=== PATIENT | female | born 1975 | race Hispanic/Latino ===

== ENCOUNTER 2019-06-19 23:31 | Emergency (ER) | payer SELFPAY ==
[2019-06-20 00:17] VITALS: BP 125/68
--- NOTE | 2019-06-20 00:46 | XRay Report ---
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 There is abnormal lucency iden tified involving the cuboid that may represent fracture. No fracture of the medial or lateral malleol us identified. Signer Name: Lorenzo Amaya MD Signed: 06/20/2019 12:41 AM Workstation Name: [id number]
[2019-06-20 01:35] LABS: Basophils % (Auto) 0.1 % (0.0-1.8); Eosinophils % (Auto) 0.2 % (0.0-4.3); Hematocrit 33.6 % (30.3-42.9); Hemoglobin 11.3 gm/dl (10.1-14.3); Lymphocytes % (Auto) 11.3 % (13.4-35.0); Mean Corpuscular HGB Conc 34 % (30-34); Mean Corpuscular Volume 89 fl (79-97); Monocytes # (Auto) 0.3 K/mm3 (0.0-0.8); Monocytes % (Auto) 3.6 % (0.0-7.3); Platelet Count 254 K/mm3 (140-440); Red Cell Distribution Width 14.3 % (13.2-15.2)
[2019-06-20 01:54] LABS: Alanine Aminotransferase 17 units/L (7-56); Albumin 4.5 g/dL (3.9-5); BUN/Creatinine Ratio 18; Blood Urea Nitrogen 20 mg/dL (7-17); Calcium 9.2 mg/dL (8.4-10.2); Hemolysis Index 2
--- NOTE | 2019-06-20 02:38 | Cat Scan Report ---
CT head without contrast INDICATION : Headache following injury TECHNIQUE: Axial imaging performed from the skull apex through the skull base without the use of con trast. All CT examinations performed at this facility utilize dose modulation, iterative reconstruct ion or weight-based dosing, when appropriate, to reduce radiation dose to as low as reasonably achiev able. COMPARISON: None FINDINGS: No acute intracranial hemorrhage or parenchymal abnormality. 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 Ventricles are normal in size and appear symm etric. Soft tissues including the orbits appear normal. No acute osseous abnormality. Sinuses a nd mastoid air cells are clear. IMPRESSION: No acute abnormality. Signer Name: Lorenzo Amaya MD Signed: 06/20/2019 2:33 AM Workstation Name: [id number]
--- NOTE | 2019-06-20 02:38 | Cat Scan Report ---
CT cervical spine spine without contrast INDICATION: fall. Neck pain following fall TECHNIQUE: Axial imaging performed through the cervical spine without the use of contrast. Sagittal and coronal reconstructed images were also reviewed. All CT scans at this location are performed us ing CT dose reduction for ALARA by means of automated exposure control. COMPARISON: None FINDINGS: Alignment: Spinal alignment is normal. Bones: There is no acute osseous abnormality. Mild multilevel discogenic DJD is present. Soft tissues: No acute or significant incidental soft tissue abnormality. IMPRESSION: No acute abnormality. Signer Name: Lorenzo Amaya MD Signed: 06/20/2019 2:34 AM Workstation Name: [id number]
--- NOTE | 2019-06-20 02:41 | Cat Scan Report ---
CT lower extremity LT wo con INDICATION / CLINICAL INFORMATION: abnormal foot x-ray, fall, foot pain. Left foot pain following injury TECHNIQUE: CT of the left foot without contrast All CT scans at this location are performed using CT dose reduct ion for ALARA by means of automated exposure control. COMPARISON: None available. FINDINGS: There is severe healed posttraumatic deformity involving the calcaneus with advanced associated subta lar degenerative changes, posttraumatic in type. The lucency identified within the navicular bone rep resents artifact and there is no discrete fracture identified. No acute dislocation. No intrinsic fra cture of the visualized ankle identified. IMPRESSION: No acute fracture or subluxation appreciated. Severe posttraumatic deformity of the calcaneus with ad vanced posttraumatic changes of the subtalar joint, as above. Signer Name: Lorenzo Amaya MD Signed: 06/20/2019 2:36 AM Workstation Name: [id number]
--- NOTE | 2019-06-20 02:48 | Emergency Department Report ---
HPI - General Chief Complaint: Fall Time Seen by Provider: 06/20/19 00:49 - HPI HPI: 43-year-old female presents to the emergency department via EMS after she tripped and fell on the street. She says that she hit her head and may have injured her left ankle and foot. She denies any loss of consciousness. She did not take anything and was not given anything for her symptoms prior to arrival. She has a past medical history of high cholesterol. Patient says that she lives in [facility] but was visiting a friend in this area. After she finished her visit she decided to walk to the store. She is unsure what she tripped over but says that she tripped over something to cause her fall. Patient denies any alcohol or illicit drug use. ED Past Medical Hx - Past Medical History Previous Medical History?: Yes Additional medical history: High Cholesterol - Surgical History Past Surgical History?: No - Social History Smoking Status: Current Every Day Smoker Substance Use Type: None ED Review of Systems ROS: Stated complaint: LT ANKLE PAIN Other details as noted in HPI Comment: All other systems reviewed and negative Constitutional: denies: chills, fever Respiratory: denies: shortness of breath Cardiovascular: denies: chest pain, syncope Gastrointestinal: denies: abdominal pain Musculoskeletal: arthralgia, myalgia. denies: back pain Skin: denies: rash, lesions Neurological: headache. denies: weakness, numbness Physical Exam - Physical Exam Vital Signs: Vital Signs 06/20/19 00:04 Temperature 98 F Pulse Rate 101 H Respiratory 16 Rate Blood Pressure 125/68 O2 Sat by Pulse 98 Oximetry Physical Exam: GENERAL: The patient is well-developed well-nourished. HENT: Normocephalic. Atraumatic. Patient has moist mucous membranes. EYES: Extraocular motions are intact. Pupils equal reactive to light bilaterally. NECK: Supple. Trachea is midline. CHEST/LUNGS: Clear to auscultation. There is no respiratory distress noted. HEART/CARDIOVASCULAR: Regular. There is no tachycardia. There is no murmur. ABDOMEN: Abdomen is soft, nontender. Patient has normal bowel sounds. There is no abdominal distention. SKIN: Skin is warm and dry. NEURO: The patient is awake, alert, and cooperative. The patient has no focal neurologic deficits. Normal speech. Cranial nerves II through XII grossly intact. MUSCULOSKELETAL: There is some tenderness to palpation to the left ankle and foot but no obvious deformity. ED Course Vital Signs 06/20/19 00:04 Temperature 98 F Pulse Rate 101 H Respiratory 16 Rate Blood Pressure 125/68 O2 Sat by Pulse 98 Oximetry ED Medical Decision Making - Lab Data Result diagrams: 06/20/19 01:15 06/20/19 01:15 - Radiology Data Radiology results: report reviewed CT cervical spine spine without contrast INDICATION: fall. Neck pain following fall TECHNIQUE: Axial imaging performed through the cervical spine without the use of contrast. Sagittal and coronal reconstructed images were also reviewed. All CT scans at this location are pe rformed using CT dose reduction for ALARA by means of automated exposure control. COMPARISON: None FINDINGS: Alignment: Spinal alignment is normal. Bones: There is no acute osseous abnormality. Mild multilevel discogenic DJD is present. Soft tissues: No acute or significant incidental soft tissue abnormality. IMPRESSION: No acute abnormality. CT head without contrast INDICATION : Headache following injury TECHNIQUE: Axial imaging performed from the skull apex through the skull base without the use of contrast. All CT examinations performed at this facility utilize dose modulation, iterative reconstruction or weight-based dosing, when appropriate, to reduce radiation dose to as low as reasonably achievable. COMPARISON: None FINDINGS: No acute intracranial hemorrhage or parenchymal abnormality. Chronic encephalomalacia of the left frontal lobe with overlying craniotomy changes. Ventricles are normal in size and appear symmetric. Soft tissues including the orbits appear normal. No acute osseous abnormality. Sinuses and mastoid air cells are clear. IMPRESSION: No acute abnormality. CT lower extremity LT wo con INDICATION / CLINICAL INFORMATION: abnormal foot x-ray, fall, foot pain. Left foot pain following injury TECHNIQUE: CT of the left foot without contrast All CT scans at this location are performed using CT dose reduction for ALARA by means of automated exposure control. COMPARISON: None available. FINDINGS: There is severe healed posttraumatic deformity involving the calcaneus with advanced associated subtalar degenerative changes, posttraumatic in type. The lucency identified within the navicular bone represents artifact and there is no discrete fracture identified. No acute dislocation. No intrinsic fracture of the visualized ankle identified. IMPRESSION: No acute fracture or subluxation appreciated. Severe posttraumatic deformity of the calcaneus with advanced posttraumatic changes of the subtalar joint, as above. - Medical Decision Making This patient presents to the emergency department with the story of tripping and falling while out walking down the street. She says she is in the area because she was visiting a friend. She says that she hit her head but there was no loss of consciousness. There is no visible area of trauma to the head. CT of the head without contrast does not show any bleed, shift, mass, ischemia, or any other acute process. CT of the cervical spine does not show any fracture, subluxation, or any other acute process. She has some tenderness to palpation to the left foot and ankle but she is neurovascularly intact. X-ray and CT scan of the left ankle and foot do not show any acute fracture or subluxation and shows some old chronic deformities to the calcaneus and subtalar joint. The patient has been seen ambulatory in the emergency department and has been walking back and forth up the hallway. The patient has been given referrals for orthopedics and podiatry in case she wants to follow-up with someone in this area. Otherwise she has been told to follow-up with one of the specialists back in [place], as well as primary care. She has been instructed to return to the emergency Department with any worsening of her symptoms or any acute distress. - Differential Diagnosis fracture, dislocation, sprain, concussion, SAH Critical Care Time: No Critical care attestation.: If time is entered above; I have spent that time in minutes in the direct care of this critically ill patient, excluding procedure time. ED Disposition Clinical Impression: Left foot pain Fall Qualifiers: Encounter type: initial encounter Qualified Code(s): W19.XXXA - Unspecified fall, initial encounter Left ankle pain Qualifiers: Chronicity: acute Qualified Code(s): M25.572 - Pain in left ankle and joints of left foot Headache Qualifiers: Headache type: unspecified Headache chronicity pattern: unspecified pattern Intractability: not intractable Qualified Code(s): R51 - Headache Disposition: DC-01 TO HOME OR SELFCARE Is pt being admited?: No Condition: Stable Instructions: Minor Head Injury (ED), Arthralgia (ED), Fall Prevention (ED) Additional Instructions: Please follow-up with your primary care physician in the next few days. Return to the emergency Department with any worsening of your symptoms or any acute distress. Despite the fact that you do not live in this area, I will provide a referral for a local orthopedist, Dr. August, and a local calciner operator, Dr. Mariano. Referrals: PRIMARY CARE, [Primary Care Provider] - 2-3 Days ROSA MARIANO DPM [Staff Physician] - 2-3 Days JARED AUGUST MD [Staff Physician] - 2-3 Days Time of Disposition: 02:48
== END 2019-06-20 03:15 | disposition home or self-care (01) ==
LOC: ED 23:31
DX: M25.572 Pain in left ankle and joints of left foot (principal); R51 Headache; M79.672 Pain in left foot; E78.00 Pure hypercholesterolemia, unspecified; F17.200 Nicotine dependence, unspecified, uncomplicated
CPT/HCPCS: 36415; 70450; 72125; 80053; 80320; 84703; 85025; G0480

== ENCOUNTER 2019-06-20 05:21 | Emergency (ER) | payer SELFPAY ==
[2019-06-20 06:21] LABS: Basophils % (Auto) 0.3 % (0.0-1.8); Eosinophils % (Auto) 0.4 % (0.0-4.3); Hematocrit 32.4 % (30.3-42.9); Hemoglobin 10.7 gm/dl (10.1-14.3); Lymphocytes # (Auto) 1.3 K/mm3 (1.2-5.4); Lymphocytes % (Auto) 16.5 % (13.4-35.0); Mean Corpuscular HGB Conc 33 % (30-34); Mean Corpuscular Volume 89 fl (79-97); Monocytes # (Auto) 0.5 K/mm3 (0.0-0.8); Monocytes % (Auto) 6.5 % (0.0-7.3); Platelet Count 261 K/mm3 (140-440); Red Blood Count 3.64 M/mm3 (3.65-5.03); Red Cell Distribution Width 14.1 % (13.2-15.2)
[2019-06-20 06:40] LABS: Calcium 8.8 mg/dL (8.4-10.2)
[2019-06-20 06:41] LABS: Bacteria,Urine 1+ /HPF (Negative); Bilirubin,Urine NEG (Negative); Blood,Urine NEG (Negative); Color,Urine Yellow (Yellow); Mucus,Urine FEW /HPF; Urobilinogen,Urine < 2.0 mg/dL (<2.0)
[2019-06-20 06:45] LABS: Amphetamine Screen,Urine PRESUMPTIVE NEGATIVE; Benzodiazepines Screen,Urine PRESUMPTIVE NEGATIVE; Cannabinoid Screen,Urine PRESUMPTIVE NEGATIVE; Cocaine Screen,Urine PRESUMPTIVE NEGATIVE; Methadone Screen,Urine PRESUMPTIVE NEGATIVE; Opiate Screen,Urine PRESUMPTIVE NEGATIVE
--- NOTE | 2019-06-20 06:53 | Emergency Department Report ---
<MIRIAN SERRATOANDREA [place] - Last Filed: 06/20/19 09:34> ED Psych HPI - General Chief Complaint: Psych Stated Complaint: HEARING VOICES Time Seen by Provider: 06/20/19 06:43 Source: patient Mode of arrival: Ambulatory - History of Present Illness Initial Comments: Patient is a 43-year-old female that presents emergency room with complaints of hearing voices. Patient states the voices are telling her to do drugs. Patient states she is not sure if she should do drugs. Patient denies suicidal or homicidal ideations. She states she is not sure what his real. Patient denies visual hallucinations. Patient denies suicidal homicidal ideations. Patient states she was just discharged from a mental health. Patient states she is taking all of her meds. Patient states she is on some new medications. Patient states these voices are new. MD Complaint: other -: Sudden Associated Psychiatric Symptoms: auditory hallucinations Quality: constant Improves With: none Worsens With: none Context: new medication(s) Associated Symptoms: denies: confusion, headache, shortness of breath, nausea, vomiting, syncope, insomnia - Related Data Home Medications Medication Instructions Recorded Confirmed Last Taken Benztropine [Cogentin] 1 mg PO QHS 06/20/19 06/20/19 Unknown Gabapentin [Neurontin] 300 mg PO BID 06/20/19 06/20/19 Unknown risperiDONE [RisperiDONE] 2 mg PO QDAY 06/20/19 06/20/19 Unknown Allergies Allergy/AdvReac Type Severity Reaction Status Date / Time No Known Allergies Allergy Unverified 06/20/19 00:17 ED Review of Systems Constitutional: denies: chills, fever Eyes: denies: eye pain, eye discharge, vision change ENT: denies: ear pain, throat pain Respiratory: denies: cough, shortness of breath, wheezing Cardiovascular: denies: chest pain, palpitations Endocrine: no symptoms reported Gastrointestinal: denies: abdominal pain, nausea, diarrhea Genitourinary: denies: urgency, dysuria, discharge Musculoskeletal: denies: back pain, joint swelling, arthralgia Skin: denies: rash, lesions Neurological: denies: headache, weakness, paresthesias Psychiatric: auditory hallucinations. denies: anxiety, depression, visual hallucinations, homicidal thoughts, suicidal thoughts Hematological/Lymphatic: denies: easy bleeding, easy bruising ED Past Medical Hx - Past Medical History Previous Medical History?: Yes Hx Psychiatric Treatment: Yes Additional medical history: High Cholesterol - Surgical History Past Surgical History?: No - Family History Family history: no significant - Social History Smoking Status: Current Every Day Smoker Substance Use Type: Alcohol - Medications Home Medications: Home Medications Medication Instructions Recorded Confirmed Last Taken Type Benztropine [Cogentin] 1 mg PO QHS 06/20/19 06/20/19 Unknown History Gabapentin [Neurontin] 300 mg PO BID 06/20/19 06/20/19 Unknown History risperiDONE [RisperiDONE] 2 mg PO QDAY 06/20/19 06/20/19 Unknown History ED Physical Exam - General Limitations: No Limitations General appearance: alert, in no apparent distress - Head Head exam: Present: atraumatic, normocephalic - Eye Eye exam: Present: normal appearance - ENT ENT exam: Present: mucous membranes moist - Neck Neck exam: Present: normal inspection - Respiratory Respiratory exam: Present: normal lung sounds bilaterally. Absent: respiratory distress - Cardiovascular Cardiovascular Exam: Present: regular rate, normal rhythm. Absent: systolic mur mur, diastolic murmur, rubs, gallop - GI/Abdominal GI/Abdominal exam: Present: soft, normal bowel sounds. Absent: distended, tenderness, guarding - Rectal Rectal exam: Present: deferred - Extremities Exam Extremities exam: Present: normal inspection - Back Exam Back exam: Present: normal inspection - Neurological Exam Neurological exam: Present: alert, oriented X3 - Psychiatric Psychiatric exam: Present: flat affect - Expanded Psychiatric Exam Expanded Focused psych exam: Present: delusional, loose associations - Skin Skin exam: Present: warm, dry, intact, normal color. Absent: rash ED Course - Reevaluation(s) Reevaluation #1: Patient placed on a 1013 for acute psychosis. 06/20/19 06:56 Reevaluation #2: Patient's labs were done. I discussed all results with patient. Patient will remain in the ER and is medically cleared for psychiatric evaluation. 06/20/19 09:35 ED Medical Decision Making - Lab Data Result diagrams: 06/20/19 05:54 06/20/19 05:54 - Medical Decision Making Patient is a 43-year-old female that presents emergency room for hallucinations. Patient found to be acute psychosis. Patient placed on a 1013. Patient medically cleared. - Differential Diagnosis acute psychosis. Hallucinations. ED Disposition Clinical Impression: Acute psychosis, Hallucination Disposition: DC/TX-65 PSY HOSP/PSY UNIT Is pt being admited?: No Does the pt Need Aspirin: No Condition: Stable Time of Disposition: 09:35 <MADONNA MCDONALD - Last Filed: 06/21/19 14:04> ED Review of Systems ROS: Stated complaint: HEARING VOICES Other details as noted in HPI ED Course Vital Signs 06/20/19 06/20/19 06/20/19 05:25 06:45 09:45 Temperature 98.2 F 98 F 97.9 F Pulse Rate 99 H 98 H 101 H Respiratory 18 18 20 Rate Blood Pressure 137/67 Blood Pressure 103/69 124/65 [Left] O2 Sat by Pulse 97 97 98 Oximetry 06/20/19 06/20/19 06/21/19 14:30 19:00 03:20 Temperature 98.1 F 98.2 F 98.3 F Pulse Rate 98 H 88 68 Respiratory 18 18 18 Rate Blood Pressure Blood Pressure 119/60 125/60 100/50 [Left] O2 Sat by Pulse 95 99 97 Oximetry 06/21/19 06/21/19 07:45 13:00 Temperature 98.4 F 98.5 F Pulse Rate 85 83 Respiratory 18 18 Rate Blood Pressure Blood Pressure 130/77 126/69 [Left] O2 Sat by Pulse 95 98 Oximetry ED Medical Decision Making - Lab Data Result diagrams: 06/20/19 05:54 06/20/19 05:54 - Medical Decision Making He has been medically cleared for psychiatric psychiatric placement has been accepted. Critical care attestation.: If time is entered above; I have spent that time in minutes in the direct care of this critically ill patient, excluding procedure time. ED Disposition Is pt being admited?: No Does the pt Need Aspirin: No Time of Disposition: 14:04
--- NOTE | 2019-06-20 15:00 | Consultation ---
History of Present Illness - Reason for Consult Consult date: 06/20/19 Reason for consult: Mental Health Evaluation Requesting physician: ANDREA VELA III - Chief Complaint Chief complaint: "Something isn't right" - History of Present Psychiatric Illness 43 y.o. white female who presented to the ER for acute psychosis. The patient was 09/20/2018 for an left ankle injury. Per the CT report of her ankle, the patient's injury is a old. Today the patient was calm, but disorganized during the assessment. She had to be redirected several times to keep her on topic. She was asked about her residence, she stated that she reside in a "[facility]." Overall, the patient is a poor historian. No gestures of SI/HI's. Medications and Allergies Allergies Allergy/AdvReac Type Severity Reaction Status Date / Time No Known Allergies Allergy Unverified 06/20/19 00:17 Home Medications Medication Instructions Recorded Confirmed Last Taken Type Benztropine [Cogentin] 1 mg PO QHS 06/20/19 06/20/19 Unknown History Gabapentin [Neurontin] 300 mg PO BID 06/20/19 06/20/19 Unknown History risperiDONE [RisperiDONE] 2 mg PO QDAY 06/20/19 06/20/19 Unknown History Past psychiatric history - Past Medical History Past Medical History: other (Ankle injury) Past Surgical History: Other (Unable to obtain ) - past Psychiatric treatment and history psychiatric treatment history: Unable to obtain a psy hx and fam psy hx. - Social History Social history: other (Unable to obtain) Mental Status Exam - Vital signs Last Vital Signs Temp 97.9 F 06/20/19 09:45 Pulse 101 H 06/20/19 09:45 Resp 20 06/20/19 09:45 BP 124/65 06/20/19 09:45 Pulse Ox 98 06/20/19 09:45 - Exam Narrative exam: MSE: Appearance: disheveled Behavior: stare with regular blank rate Speech: regular rate and tone Mood: blunted, preoccupied Affect: congruent to mood Thought Process: disorganized Thought Content: no gestures of SI/HI's, delusional Motor Activity: sitting in a chair Cognition: A/O x 2 Insight: poor Judgment: poor Results Result Diagrams: 06/20/19 05:54 06/20/19 05:54 Abnormal lab results 06/20/19 06/20/19 06/20/19 Range/Units 05:54 05:54 05:54 RBC (3.65-5.03) M/mm3 Seg Neutrophils % (40.0-70.0) % BUN 20 H (7-17) mg/dL Salicylates < 0.3 L (2.8-20.0) mg/dL Acetaminophen < 5.0 L (10.0-30.0) ug/mL 06/20/19 Range/Units 05:54 RBC 3.64 L (3.65-5.03) M/mm3 Seg Neutrophils % 76.3 H (40.0-70.0) % BUN (7-17) mg/dL Salicylates (2.8-20.0) mg/dL Acetaminophen (10.0-30.0) ug/mL All other labs normal. Assessment and Plan Assessment and plan: Impression: Unspecified Psychosis. Today the patient was calm, but disorganized during the assessment. DDx: Bipolar DO with psychosis, Schizophrenia Recommendation/Plan: Continue 1013 and start Zyprexa 5 mg PO HS for psychosis. Attempted to discuss metabolic side effects of Zyprexa with the patient. Baseline A1c/lipid panel ordered for the AM. Dispo: The patient was referred to inpatient psy services. Staffed with Dr Sim Dodge.
[2019-06-21 06:23] LABS: Chol/HDL Ratio 3.9 %
--- NOTE | 2019-06-21 09:12 | Progress Note ---
Subjective - Reason for Consult Consult date: 06/21/19 Reason for consult: Psychiatry Follow-up - Chief Complaint Chief complaint: "I need to leave" 43 y.o. white female who presented to the ER for acute psychosis. The patient was seen 09/20/2018 for a left ankle injury. Today the patient is still disorganized during the assessment. She is adamant about leaving the ER. Her answers to questions were not logical throughout the interview. Overall, the fang jackson's insight is still poor. She denies SI/HI's and AVH's. Mental Status Exam - Vital signs Last Vital Signs Temp 98.4 F 06/21/19 07:45 Pulse 85 06/21/19 07:45 Resp 18 06/21/19 07:45 BP 130/77 06/21/19 07:45 Pulse Ox 95 06/21/19 07:45 - Exam Narrative exam: MSE: Appearance: disheveled Behavior: stare with regular blank rate Speech: regular rate and tone Mood: blunted,still preoccupied Affect: congruent to mood Thought Process: disorganized Thought Content: denies SI/HI's and AVH's, delusional Motor Activity: sitting in a chair Cognition: A/O x 2 Insight: poor Judgment: poor Assessment and Plan Impression: Unspecified Psychosis. Today the patient was calm, but still disorganized during the assessment. DDx: Bipolar DO with psychosis, Schizophrenia Recommendation/Plan: Continue 1013 and Zyprexa 5 mg PO HS for psychosis. Attempted to discuss metabolic side effects of Zyprexa with the patient. Baseline A1c/lipid panel ordered for the AM. Dispo: The patient was accepted at [facility] for inpatient psy services. Will staff with Dr Sim Dodge.
[2019-06-21 13:25] VITALS: BP 126/69
== END 2019-06-21 15:09 ==
LOC: ED 05:21 → EEVIPCON 05:21 → ED 06-21 15:09
DX: R44.0 Auditory hallucinations (principal); E78.00 Pure hypercholesterolemia, unspecified; Z79.899 Other long term (current) drug therapy
CPT/HCPCS: 36415; 80048; 80061; 80307; 80320; 81001; 83036; 84703; 85025; G0480